=== PATIENT | male | born 1955 | race Caucasian/White ===

== ENCOUNTER 2023-12-31 10:36 | Outpatient (CLI) | payer MEDICARE, SELFPAY ==
--- NOTE | ~2023-12-31 | MR_ITS ---
MRI of the lumbar spine Clinical History: Back pain Technique: Axial T2-weighted images, and sagittal T1-weighted, T2-weighted, and and T2 fat-sat images were acquired. Findings: There is anterior interbody fusion from L5 to S1, with anterior plate and screws, interbody fusion device present. There is minimal grade 1 anterolisthesis of L2 over L3. No acute fracture see n. No suspicious bone marrow signal abnormality seen. At L1-L2, there is moderate degenerative distended with diffuse disc bulge and moderate to advanced f acet arthropathy. There is mild central canal stenosis. There is moderate to advanced right neural fo raminal narrowing, and moderate left neural foraminal narrowing. At L2-L3, there is diffuse disc bulge and severe facet arthropathy. There is mild central canal steno sis. Neural foramina are preserved. At L3-L4, there is severe degenerative disc narrowing. There is mild diffuse disc bulge and moderate to advanced facet arthropathy. No central canal stenosis. There is severe left neural foraminal narro wing, and mild to moderate right neural foraminal narrowing. At L4-L5, there is diffuse disc bulge with severe facet arthropathy. No central canal stenosis. There is moderate to advanced left neural foraminal narrowing, and mild to moderate right neural foraminal narrowing. At L5-S1, there is no spinal canal stenosis. There is mild facet arthropathy. Neural foramina are pre served. Paravertebral soft tissues are unremarkable. Impression: Moderate degenerative spondylosis of the lumbar spine, as above, worst at L1-L2, L3-L4, L4-L5. Anterior fusion from L5 to S1. Reviewed, dictated and finalized at [facility]. Impression: Moderate degenerative spondylosis of the lumbar spine, as above, worst at L1-L2 , L3-L4, L4-L5. Anterior fusion from L5 to S1.
== END 2023-12-31 10:37 | disposition home or self-care (01) ==
PROVIDERS: PCP Internal Medicine; Visit Provider Nurse Practitioner Family
DX: M47.896 Other spondylosis, lumbar region (principal); Z98.1 Arthrodesis status
CPT/HCPCS: 72148

== ENCOUNTER 2025-03-01 08:44 | Outpatient (CLI) | payer MEDICARE, SELFPAY ==
--- NOTE | 2025-03-01 09:00 | NEURO_ITS ---
Impression: # Known diabetic complains of increasing numbness of hands. # History of cervical fusions/ lumbar fusions. # Subtle right Carpal Tunnel Syndrome. 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 # Needle/ EMG exam, particularly bilateral Triceps, related to previous cervical problem. # Clinical correlation recommended. Nerve Conduction Studies ?Stim Site NR Peak (ms) P-T Amp (?V) Site1 Site2 Delta-P (ms) Dist (cm) Will (m/s) Left Median Anti Sensory (2-3nd Digit) Wrist ? 3.3 13.8 Wrist 2-3nd Digit 3.3 14.0 42 Wrist ? 3.3 20.4 Wrist 2-3nd Digit 3.3 14.0 42 Right Median Anti Sensory (2-3nd Digit) Wrist ? 3.0 19.5 Wrist 2-3nd Digit 3.0 14.0 47 Wrist ? 3.0 19.6 Wrist 2-3nd Digit 3.0 14.0 47 Left Radial Anti Sensory (Base 1st Digit) Wrist ? 2.6 6.0 Wrist Base 1st Digit 2.6 0.0 Right Radial Anti Sensory (Base 1st Digit) Wrist ? 2.7 6.6 Wrist Base 1st Digit 2.7 0.0 Left Ulnar Anti Sensory (5th Digit) Wrist ? 2.8 19.5 Wrist 5th Digit 2.8 14.0 50 Right Ulnar Anti Sensory (5th Digit) Wrist ? 2.6 20.6 Wrist 5th Digit 2.6 14.0 54 ?Stim Site NR Onset (ms) O-P Amp (mV) Site1 Site2 Delta-0 (ms) Dist (cm) Will (m/s) Left Median Motor (Abd Poll Brev) Wrist ? 3.4 3.9 Elbow Wrist 6.3 33.0 52 Elbow ? 9.7 1.6 Right Median Motor (Abd Poll Brev) Wrist ? 4.4 3.5 Elbow Wrist 6.4 32.0 50 Elbow ? 10.8 2.6 Left Ulnar Motor (Abd Dig Minimi) Wrist ? 2.8 7.1 A Elbow Wrist 6.0 32.0 53 A Elbow ? 8.8 6.5 B Elbow Wrist 4.2 24.0 57 B Elbow ? 7.0 6.6 Right Ulnar Motor (Abd Dig Minimi) Wrist ? 3.0 7.6 A Elbow Wrist 6.0 32.0 53 A Elbow ? 9.0 6.9 B Elbow Wrist 4.3 23.0 53 B Elbow ? 7.3 6.3 F Wave Studies ?NR F-Lat (ms) L-R F-Lat (ms) Left Median (Mrkrs) (Abd Poll Brev) ? 30.44 0.40 Right Median (Mrkrs) (Abd Poll Brev) ? 30.04 0.40 Left Ulnar (Mrkrs) (Abd Dig Min) ? 33.07 1.81 Right Ulnar (Mrkrs) (Abd Dig Min) ? 31.26 1.81 Electromyography ?Side Muscle Nerve Root Ins Act Fibs Amp Dur Recrt Comment Right 1stDorInt Ulnar C8-T1 Nml Nml Nml Nml +1 Left 1stDorInt Ulnar C8-T1 Nml Nml Nml Nml +1 Right ABD Dig Min Ulnar C8-T1 Nml Nml Nml Nml Nml Left ABD Dig Min Ulnar C8-T1 Nml Nml Nml Nml Nml Left Abd Poll Brev Median C8-T1 Nml Nml Nml Nml Nml Right Abd Poll Brev Median C8-T1 Nml Nml Nml Nml Nml Right Abd Poll Long Radial (Post Int) C7-8 Nml Nml Nml Nml Nml Left Abd Poll Long Radial (Post Int) C7-8 Nml Nml Nml Nml Nml Left Biceps Musculocut C5-6 Nml Nml Nml >12ms Nml Right Biceps Musculocut C5-6 Nml Nml Nml >12ms Nml Left BrachioRad Radial C5-6 Nml Nml Nml >12ms +1 Right BrachioRad Radial C5-6 Nml Nml Nml >12ms +1 Left Deltoid Axillary C5-6 Nml Nml Nml >12ms Nml Right Deltoid Axillary C5-6 Nml Nml Nml >12ms Nml Right Ext Digitorum Radial (Post Int) C7-8 Nml Nml Nml Nml Nml Left Ext Digitorum Radial (Post Int) C7-8 Nml Nml Nml Nml Nml Right Ext Indicis Radial (Post Int) C7-8 Nml Nml Nml Nml Nml Left Ext Indicis Radial (Post Int) C7-8 Nml Nml Nml Nml Nml Right FlexPolLong Median (Ant Int) C7-8 Nml Nml Nml Nml Nml Left FlexPolLong Median (Ant Int) C7-8 Nml Nml Nml Nml Nml Left PronatorTeres Median C6-7 Nml Nml Nml Nml +1 Right PronatorTeres Median C6-7 Nml Nml Nml Nml +1 Left Triceps Radial C6-7-8 Nml 1+ Decr >12ms +1 Right Triceps Radial C6-7-8 Nml 1+ Decr >12ms +1
--- OUTSIDE RECORDS SUMMARY | 2025-03-01 09:21 | XMS_ITS | Clinical Summary ---
Author Organization [facility] Address [address] [place] [address] Care Team Providers Care Line Clearance Foreman Name Role Phone Feng Jacobs MD Primary Care Provider [phone] Source Comments [facility],non-[facility] Affiliates and Associated Physician Practices is amultiple site organization consisting of ambulatory clinics and hospital sitesin [place], [place], [place] and [place]. This disclosure is being madepursuant to the Care Everywhere program and may not contain all information available regarding this patient. Last updated 18.[facility] Allergies Active Allergy Reactions Criticality Noted Date Comments Penicillins 08/04/2012 Medications * Be aware that medications may not be up to date on this document. Alwaysverify current medications with the patient. lisinopril (PRINIVIL; ZESTRIL) 10 MG tablet Take 10 mg by mouth once daily. Active dapagliflozin propanediol (FARXIGA) 10 MG tablet Take 10 mg by mouth every morning Active Flaxseed, Linseed, (FLAXSEED OIL PO) flaxseed oil Active metFORMIN (GLUCOPHAGE) 500 MG tablet 0 Active rosuvastatin (CRESTOR) 10 MG tablet 1 Active warfarin (COUMADIN) 5 MG tablet 1 Active atenolol (TENORMIN) 25 MG tablet Take 25 mg by mouth once daily Active Social History Tobacco Use Types Packs/Day Years Used Date Smoking Tobacco: Former Smokeless Tobacco: Never Sex and Gender Information Value Date Recorded Sex Assigned at Not on file Legal Sex Male 12:15 PM CDT Gender Identity Not on file Sexual Orientation Not on file Last Filed Vital Signs Vital Sign Reading Time Taken Comments Blood Pressure 153/79 03/23/2018 12:14 PM LOGISTICS INTERN Pulse 74 03/23/2018 12:14 PM LOGISTICS INTERN Temperature - - Respiratory Rate 16 03/23/2018 12:14 PM LOGISTICS INTERN Oxygen Saturation 95% 03/23/2018 12:14 PM LOGISTICS INTERN Inhaled Oxygen Concentration - - Weight 122.5 kg (270 lb) 11/06/2020 9:55 AM CDT Height 188 cm (6' 2) 11/06/2020 9:55 AM CDT Body Mass Index 34.67 11/06/2020 9:55 AM CDT Plan of Treatment Health Maintenance Due Date Last Done Comments COLOGUARD (AGES 45-75) - COLON CA SCREENING 1955 COLON MONITORING 1955 COLONOSCOPY - COLON CA SCREENING 1953 CT COLONOGRAPHY - COLON CA SCREENING 1955 Colorectal Cancer Screening 1955 FIT - COLON CA SCREENING 1955 FLEX SIG - COLON CA SCREENING 1955 HEPATITIS C SCREENING 11/28/1971 DTAP/TDAP/TD VACCINES (1 - Tdap) 1972 PNEUMOCOCCAL VACCINE 50+ (1 of 1 - PCV) 12/03/2003 ZOSTER VACCINE (1 of 2) 12/03/2003 Respiratory Syncytial Virus (RSV) Vaccine Pt: or over 60 yrs (1 - Risk 60-74 years 1-dose series) 2013 AAA SCREENING 2018 SCREENING FOR DIABETES 09/21/2020 DEPRESSION SCREENING 04/28/2024 MEDICARE AWV CALENDAR YEAR 2024 COVID-19 VACCINE ( - season) 2024 INFLUENZA VACCINE (#1) 2024 8, 03/07/2017, 05/14/2016, Additional history exists HEPATITIS B VACCINE Aged Out No longe r eligible based on patient's age to complete this topic HIB VACCINE Aged Out No longer eligi ble based on patient's age to complete this topic HPV VACCINE Aged Out No longer eligi ble based on patient's age to complete this topic MENINGOCOCCAL (Group B) VACCINE SHARED DECISION-MAKING Aged Out No longer eligible based on patient's age to complete this topic MENINGOCOCCAL GROUPS A/C/Y/W VACCINE Aged Out No longer eligible based on patient's age to complete this topic Insurance AETNA AETNA MEDICARE ADV AETNA [facility] [employer] Care Teams Line Clearance Foreman Relationship Specialty Start Date End Date Feng Jacobs MD [address] [phone] PCP - General 01/15/21
--- OUTSIDE RECORDS SUMMARY | 2025-03-01 09:21 | XMS_ITS | Encounter Summary ---
Author Organization [facility] Address [address] [place] [address] Care Team Providers Care Nursing Program Coordinator Name Role Phone Feng Jacobs MD Primary Care Provider [phone] Encounter Details Date Type Department Care Team (Late st Contact Info) Description 11/26/2022 Lab Requisition [facility] - DermPath Lab [address] [place] [address] Rolo Llamas MD [address] [address] Social History Tobacco Use Types Packs/Day Years Used Date Smoking Tobacco: Former Smokeless Tobacco: Never Sex and Gender Information Value Date Recorded Sex Assigned at Not on file Legal Sex Male 12:15 PM CDT Gender Identity Not on file Sexual Orientation Not on file documented as of this encounter Plan of Treatment Not on file documented as of this encounter Procedures Procedure Name Priority Date/Time Associated Diagnosis Comments DERMATOPATHOLOGY Routine 11/26/2022 12:0 0 AM CDT documented in this encounter Results * DERMATOPATHOLOGY (11/26/2022 12:00 AM CDT) Case Report Dermatopathology Report Case: [id number] Authorizing Provider: Rolo Llamas MD Collected: 11/26/2022 12:00 AM Ordering Location: [facility] DermPath Lab Received: 11/26/2022 04:29 PM Pathologist: Edita James MD Specimen: Skin, left scalp/ sup. ear 3 3:19 PM CDT DERMATOPATHOLOGY LABORATORY Final Diagnosis Specimen A. SKIN, left scalp/ sup. ear: EPIDERMOID CYST, SUPERFICIAL PORTIONS ONLY (L72.0) 3 3:19 PM CDT DERMATOPATHOLOGY LABORATORY at 1519 CDT Clinical History BCC vs SCC vs other 3 3:19 PM CDT DERMATOPATHOLOGY LABORATORY Gross Description Specimen A: Received is one formalin filled container labeled with the patient's name and designated left scalp/ sup. ear. The specimen consists of a shave biopsy measuring 4x4x1 mm. Jar 0. 3 3:19 PM CDT DERMATOPATHOLOGY LABORATORY Microscopic Description Specimen A. SKIN, left scalp/ sup. ear: Within the dermis, there is a space lined by epithelium that resembles normal epidermis and the infundibular portion of the hair follicle. 3 3:19 PM CDT DERMATOPATHOLOGY LABORATORY Disclaimer An external and internal positive and negative controls are appropriate for the histochemical, immunohistochemical and immunofluorescence stain(s) in this case (if any), except where stated explicitly. The performance characteristics of the stain(s) cited in this report were developed and its performance characteristic determined by the Dermatopathology Laboratory at [facility], directed by Dr. Stephen James. These tests need not be, and therefore are not, approved by the [place] Food and Drug Administration. The tests are used for clinical purposes. Billing Codes Specimen Charges Stain Charges 13625 1 3 3:19 PM CDT DERMATOPATHOLOGY LABORATORY Embedded Images 3 3:19 PM CDT DERMATOPATHOLOGY LABORATORY Pathology/Cytolog y TISSUE SPECIMEN FROM SKIN / Unknown 11/26/2022 11/26/2022 4:29 PM CDT us Rolo Llamas MD LAB - PATHOLOGY/CYTOLOGY ORDER KAMINI Final Result DERMATOPATHOLOGY LABORATORY [facility] - Department of Dermatology [address], [address] [phone] documented in this encounter Visit Diagnoses Not on filedocumented in this encounter Care Teams Nursing Program Coordinator Relationship Specialty Start Date End Date Feng Jacobs MD [address] [facility] [address] [place] [address] PCP - General 01/15/21 documented as of this encounter
--- OUTSIDE RECORDS SUMMARY | 2025-03-01 09:21 | XMS_ITS | Encounter Summary ---
Author Organization [facility] Health Address [address] [place] [address] Care Team Providers Care Pharmacist Per Diem Name Role Phone Des Simmons MD Primary Care Provider [phone] Feng Jacobs MD Primary Care Provider [phone] Encounter Details Date Type Department Care Team (Late st Contact Info) Description 09/29/2020 [facility]NAL [facility] DEPT Unknown, Provider Social History Tobacco Use Types Packs/Day Years Used Date Smoking Tobacco: Former Smokeless Tobacco: Never Sex and Gender Information Value Date Recorded Sex Assigned at Not on file Legal Sex Male 12:15 PM CDT Gender Identity Not on file Sexual Orientation Not on file COVID-19 Exposure Response Date Recorded In the last month, have you been in contact with someone who was confirmed or suspected to have Coronavirus / COVID-19? No / Unsure 09/29/2020 3:07 PM CDT documented as of this encounter Plan of Treatment Not on file documented as of this encounter Visit Diagnoses Not on filedocumented in this encounter Care Teams Pharmacist Per Diem Relationship Specialty Start Date End Date Des Simmons MD PCP - General Internal Medicine 09/21/20 01/14/21 Feng Jacobs MD [address] [facility] [address] [place] [address] PCP - General 01/15/21 documented as of this encounter
== END 2025-03-01 08:45 | disposition home or self-care (01) ==
PROVIDERS: PCP Internal Medicine; Visit Provider Internal Medicine
DX: R20.0 Anesthesia of skin (principal); E11.9 Type 2 diabetes mellitus without complications; G56.01 Carpal tunnel syndrome, right upper limb; G56.20 Lesion of ulnar nerve, unspecified upper limb; Z98.1 Arthrodesis status
CPT/HCPCS: 95886; 95911

== ENCOUNTER 2025-03-18 01:13 | Day surgery (SDC) | payer MEDICARE, SELFPAY ==
[2025-03-09 16:01] VITALS: BMI 30.8
--- NOTE | 2025-03-09 16:20 | PC.NURSE ---
Spoke with PATIENT regarding medication WARFARIN. _PATIENT verbalizes understanding that the last dose is to be taken on 03/13/2025 and the Endoscopist will instruct them when to restart after the procedure.
[2025-03-18 07:15] VITALS: BP 148/79; PULSE 92; RESP 16; TEMP 36.6; O2SAT 96; BMI 30.8
[2025-03-18] MEDS: LACTATED RINGERS 1,000 ML 150 ML IV CONT (07:27)
--- NOTE | 2025-03-18 07:42 | WPDANESEPPF ---
Anes - Initial Pre Proc Eval Procedure: Operation Date: 03/18/25 08:30 Proposed Procedures p Diagnostic Colonoscopy - Robe Kat MD Date/Time: 03/18/25 07:42 Surgeon: Robe Kat MD Pre Op Diagnosis: Other fecal abnormalities Patient Data Age: 69 Gender: M Height: 1.88 m Weight: 108.8 kg Last Vital Signs Temp 97.8 F 03/18/25 07:15 Pulse 92 03/18/25 07:15 Resp 16 03/18/25 07:15 BP 148/79 H 03/18/25 07:15 Pulse Ox 96 03/18/25 07:15 O2 Del Method Room Air 03/18/25 07:15 Allergies Allergy/AdvReac Type Severity Reaction Status Date / Time Penicillins Allergy Mild Unknown Verified 03/18/25 07:12 Home Medications ?Medication ?Instructions ?Recorded ?Confirmed ?Type atenolol 50 mg tablet 50 mg PO DAILY 11/10/24 03/18/25 History dofetilide 500 mcg capsule 500 mcg PO BID 11/10/24 03/09/25 History empagliflozin 25 mg tablet 25 mg PO DAILY 11/10/24 03/09/25 History (Jardiance) lisinopril 40 mg tablet 40 mg PO DAILY 11/10/24 03/18/25 History magnesium oxide 500 mg capsule 500 mg PO DAILY 11/10/24 03/09/25 History meloxicam 15 mg tablet 15 mg PO DAILY 11/10/24 03/18/25 History rosuvastatin 10 mg tablet 10 mg PO DAILY 11/10/24 03/18/25 History warfarin 1 mg tablet (Jantoven) 1 mg PO 3XW 11/10/24 03/18/25 History dapagliflozin propanediol 5 mg 5 mg PO DAILY 03/09/25 03/18/25 History tablet (Farxiga) warfarin 5 mg tablet 5 mg PO 03/09/25 History warfarin 7.5 mg tablet 7.5 mg PO .TTHSAT 03/09/25 03/09/25 History Laboratory Tests 03/18/25 07:20 POC Capillary Glucose 170 H mg/dl (65-105) Patient hx anesthesia problems: none Family hx anesthesia problems: none Results Review: All pre-operative results and documents have been reviewed as part of the pre-operative evaluation. [facility] Past Medical History Medical History (Updated 11/10/24 @ 09:29 by Chrissy Corea APRN) Diabetes Hx of allergy Family History Family History (Updated 11/10/24 @ 09:18 by Jessica Voss MA) Mother Heart disease Father Heart disease Social History Social History Alcohol intake: current Substance use: never Substance use type: does not use Anes - Eval Final PreProcedure Day of Procedure 03/18/25 07:42 Patient weight: obese Lungs: normal air movement Neurological: alert and oriented Last oral intake: >/= 8 hours ASA classification: III Emergent: no Anesthetic plan: proceed Anesthesia type and monitoring: general GIVS and standard monitoring Results Review: All pre-operative results and documents have been reviewed as part of the pre-operative evaluation. FSBS 170. Informed Consent: The patient's anesthetic plan and its attendant risks and benefits were discussed with the patient/family/POA. Questions were solicited and answers provided to the satisfaction of the patient/family/POA.
--- NOTE | 2025-03-18 08:25 | PM.HPGS ---
History of Present Illness History of Present Illness Consent: Risks, benefits, and alternatives have been discussed and questions answered. Patient agrees to proceed with procedure. Chief complaint: Other fecal abnormalities Narrative: Des Hickey is a 69 year old male with + cologuard, he attempt colonoscopy about 20 years but had bad experience and since he had CT virtual colonoscopy Review of Systems Review of Systems: All systems reviewed & are unremarkable except as noted in HPI and below PMFSH Past Medical History Medical History (Updated 11/10/24 @ 09:29 by Chrissy Corea APRN) Diabetes Hx of allergy Family History Family History (Updated 11/10/24 @ 09:18 by Jessica Voss MA) Mother Heart disease Father Heart disease Social History Social History Alcohol intake: current Substance use: never Substance use type: does not use Meds Home Medications and Allergies Home Medications ?Medication ?Instructions ?Recorded ?Confirmed ?Type atenolol 50 mg tablet 50 mg PO DAILY 11/10/24 03/18/25 History dofetilide 500 mcg capsule 500 mcg PO BID 11/10/24 03/09/25 History empagliflozin 25 mg tablet 25 mg PO DAILY 11/10/24 03/09/25 History (Jardiance) lisinopril 40 mg tablet 40 mg PO DAILY 11/10/24 03/18/25 History magnesium oxide 500 mg capsule 500 mg PO DAILY 11/10/24 03/09/25 History meloxicam 15 mg tablet 15 mg PO DAILY 11/10/24 03/18/25 History rosuvastatin 10 mg tablet 10 mg PO DAILY 11/10/24 03/18/25 History warfarin 1 mg tablet (Jantoven) 1 mg PO 3XW 11/10/24 03/18/25 History dapagliflozin propanediol 5 mg 5 mg PO DAILY 03/09/25 03/18/25 History tablet (Farxiga) warfarin 5 mg tablet 5 mg PO 03/09/25 History warfarin 7.5 mg tablet 7.5 mg PO .TTHSAT 03/09/25 03/09/25 History Allergies Allergy/AdvReac Type Severity Reaction Status Date / Time Penicillins Allergy Mild Unknown Verified 03/18/25 07:12 Vital Signs Vital Signs - 24 hr 03/18/25 07:15 Temperature 97.8 F Pulse Rate 92 Respiratory Rate 16 Blood Pressure 148/79 H Pulse Oximetry 96 Oxygen Delivery Room Air Exam Const: General: comfortable and no acute distress HENMT: Face/Nose/Sinus: Normal nares present Eyes: General: appearance normal, both eyes and all related structures Neck: Neck: no JVD Resp: Auscultation: clear to auscultation bilaterally Cardio: Rate: regular rate Rhythm: regular rhythm GI: Inspection: non-distended GI Palp: Yes Soft to palpation Skin: General skin exam: normal color Extrem: General: normal to inspection Psych: Mental Status: mental status grossly normal Assessment and Plan Assessment and plan (1) Positive colorectal cancer screening using Cologuard test: Code(s): R19.5 - Other fecal abnormalities Status: Acute Assessment and Plan: colonoscopy
--- NOTE | 2025-03-18 08:55 | S_PTH ---
PATIENT: Des Hickey LOC: [facility]#:[id number] AGE/SX: 69/M ROOM: RE03/18/[address]: Robe Kat MD : 1955 BED: DIS: 03/18/2025 SPEC #: [id number] RECD: 03/18/25 10:05 STATUS: TOM MAYES #: [id number] MARCK: 03/18/25 08:[address]: Robe Kat DEPT: [facility] Surgical RECD BY: Olya Vo ENTERED: 03/18/25 10:05 SP TYPE: Surgical OTHR DR: Des SimmonsMD Tissues: A - Colon Polypectomy B - Colon Polypectomy Procedures: Hematoxylin and Eosin Stain Gross and Microscopic Level 4
--- NOTE | 2025-03-18 08:56 | SUR.OPER ---
descending polypectomy x 3, only one retrieved, dr galvan aware.
[2025-03-18 08:58] VITALS: BP 154/81; PULSE 83; RESP 19; O2SAT 96
[2025-03-18 09:08] VITALS: BP 146/80; PULSE 79; RESP 17; O2SAT 95
[2025-03-18 09:18] VITALS: BP 154/83; PULSE 75; RESP 18; O2SAT 96
== END 2025-03-18 09:31 | disposition home or self-care (01) ==
PROVIDERS: PCP Internal Medicine; Referring Provider Nurse Practitioner; Visit Provider Internal Medicine Gastroenterology
PROC: 0DJD8ZZ Inspection of Lower Intestinal Tract, Via Natural or Artificial Opening Endoscopic (ICD-10-PCS; CPT 45378; principal; 2025-03-18 08:30)
DX: R19.5 Other fecal abnormalities (principal); D12.3 Benign neoplasm of transverse colon; D12.4 Benign neoplasm of descending colon; K64.8 Other hemorrhoids; E11.9 Type 2 diabetes mellitus without complications; E66.9 Obesity, unspecified; Z68.30 Body mass index [BMI] 30.0-30.9, adult
CPT/HCPCS: 45385; 82948; 88305; J2003; J2704; J7120